=== PATIENT | male | born 1985 | race Caucasian/White ===

== ENCOUNTER 2020-09-26 17:42 | Emergency (ER) | payer SELFPAY ==
[~2020-09-26] VITALS: Ht 175.3 cm; Wt 120.0 kg
--- NOTE | 2020-09-26 17:52 | NUR ---
PATIENT WHEELED BACK TO ROOM FROM TRIAGE.
--- NOTE | 2020-09-26 18:18 | NUR ---
automation technician completed. Pt found sitting on edge of bed watching a movie and on cellphone while talking to female prior authorization nurse in room with him. No apparent distress noted, but states pain is 7/10 in chest with numbness/pressure down LUE and cramping pain in LLE that started when CP started but has since resolved. Pressure when through to back initially as well but has also since resolved.
--- NOTE | 2020-09-26 18:34 | NUR ---
satellite technician and radioisotope technician at bedside for testing as ordered.
[2020-09-26 18:37] LABS: BASOPHILS % (AUTO) 1 % (0-1); EOSINOPHILS % (AUTO) 2 % (1-7); LYMPHOCYTES % (AUTO) 20 % (22-44); MEAN CORPUSCULAR HEMOGLOBIN 26.2 pg (27.5-34.5); MEAN PLATELET VOLUME 7.4 fL (7.4-10.4); MONOCYTES % (AUTO) 6 % (2-9); NEUTROPHILS % (AUTO) 71 % (42-75); PLATELET COUNT 306 x10^3/uL (130-400); RED BLOOD COUNT 5.58 x10^6/uL (4.38-5.82); RED CELL DISTRIBUTION WIDTH 15.8 % (9.4-14.8)
[2020-09-26 18:45] LABS: MD NO
[2020-09-26 18:48] LABS: ALANINE AMINOTRANSFERASE 33 U/L (12-78); ALBUMIN 3.9 g/dL (3.4-5.0); ANION GAP 8 mmol/L (5-15); CHLORIDE 103 mmol/L (98-107); CREATININE 0.98 mg/dL (0.7-1.3)
[2020-09-26 18:52] LABS: ALKALINE PHOSPHATASE 110 U/L (45-117); BILIRUBIN,TOTAL 0.2 mg/dL (0.2-1.0); TROPONIN I < 0.015 ng/mL (0.000-0.045)
--- NOTE | 2020-09-26 18:58 | NUR ---
Report given to LI Abraham and onur tranferred.
--- NOTE | 2020-09-26 19:02 | NUR ---
patient resting in bed in NAD. safety maintained. will continue to monitor
[2020-09-26] MEDS ORDERED: NITROGLYCERIN SINGLE TAB 0.4 MG SL ONE (19:19)
[2020-09-26] MEDS ORDERED: NITROGLYCERIN 0.4 MG BOTTLE (25 TABS) SL PRN (19:30)
--- NOTE | 2020-09-26 19:31 | NUR ---
patient requesting to use bathroom but continues to reports L arm numbness but chest pressure has resolved. patient educated by this RN on plan of care and urinal provided. patient states he is aware of troponin being drawn in 4 more hours. i explained to louise ROMEO that we will initiate once he has finished with urinal. will continue to monitor. safety maintained. will continue to monitor.
--- NOTE | 2020-09-26 19:45 | NUR ---
nitro SL administered. patient educated on this medication prior to admin. IV placed prior to admin and explained reasoning for this intervention. chest pressure 2/10 prior to admin wq/ L arm numbness/tightness
--- NOTE | 2020-09-26 20:30 | NUR ---
denies Chest pain/pressure at this time. VS remain stable on RA. call moreno in reach. will continue to monitor
[2020-09-26 21:17] LABS: TROPONIN I < 0.015 ng/mL (0.000-0.045)
--- NOTE | 2020-09-26 21:21 | NUR ---
patient continues to deny chest pain at this time. resting in bed watching TV with visitor at bedside. safety maintained. will continue to monitor.
--- NOTE | 2020-09-26 21:39 | NUR ---
discharge instructions reviewed with patient. no further questions at this time. IV removed per dc protocol. VS remain stable on RA. all personal belongings with patient on dc. steady gait to lobby. denies CP on dc.
[2020-09-26 21:41] VITALS: BP 100/78
== END 2020-09-26 21:56 | disposition home or self-care (01) ==
LOC: ED 21:48
DX: R07.89 Other chest pain (principal); R20.2 Paresthesia of skin; R94.31 Abnormal electrocardiogram [ECG] [EKG]
CPT/HCPCS: 36415; 71045; 80053; 84484; 85025; 93005; 99285

== ENCOUNTER 2020-12-28 17:03 | Emergency (ER) | payer SELFPAY | END 2020-12-28 19:33 | LOC: ED 17:46 | DX: M79.671 Pain in right foot (principal); W22.8XXA Striking against or struck by other objects, initial encounter; Y93.89 Activity, other specified; Y92.89 Other specified places as the place of occurrence of the external cause; Y99.8 Other external cause status | CPT/HCPCS: 99281 ==